=== PATIENT | female | born 2000 | race Caucasian/White ===

== ENCOUNTER 2024-01-02 09:19 | Emergency (ER) | payer OTHER, SELFPAY ==
[2024-01-02 10:01] VITALS: BP 124/65; PULSE 98; RESP 20; TEMP 37.1; O2SAT 100
--- NOTE | 2024-01-02 10:08 | ED.URI ---
HPI - URI/Sore Throat General Chief Complaint: Upper Respiratory Infection Stated Complaint: throat/cough/sob History of Present Illness HPI Narrative: Patient presents with nasal congestion and cough for the past 2 days. Patient has taken some nasal spray for her symptoms 1 time other than that has not taking anything for her symptoms. Patient requests a work note. No fever slight nonproductive cough. Normal appetite normal activity normally healthy individual Related Data Home Medications Medication Instructions Recorded Confirmed No Home Medications 01/02/24 01/02/24 Allergies Allergy/AdvReac Type Severity Reaction Status Date / Time doxycycline Allergy Rash Verified 01/02/24 10:00 Review of Systems Review of Systems: CONSTITUTIONAL: Denies chills, or sweats. Reports fever and generalized body aches EYES: Denies visual changes, redness, or discharge. ENT: Denies otalgia. Reports nasal congestion runny nose and sore throat CARDIOVASCULAR: Denies chest pain, palpitations, or edema. RESPIRATORY: Denies dyspnea. Reports occasional cough GASTROINTESTINAL: Denies abdominal pain, nausea, vomiting, or diarrhea. GENITOURINARY: Denies dysuria or hematuria. SKIN: Denies rash or itching. MUSCULOSKELETAL: Denies back pain, joint pain, or myalgia. Reports generalized body aches NEUROLOGIC: Denies headache, numbness, or weakness. PSYCHIATRIC: Denies anxiety or depression. PMFSH Comments At time of signature, agree with nursing past medical, surgical, social and family history. There is no relevant family history pertinent to the presenting complaint Exam Narrative: The patient is a well-developed, well-nourished in no acute distress. SKIN: Skin is warm and dry without erythema, swelling or exudate. There is good turgor. No tenting. HEAD: Atraumatic. Normocephalic. No temporal or scalp tenderness. EYES: Moist and bright. Sclera and conjunctivae normal. No discharge. PERRLA. Extraocular motions intact. Gross visual acuity intact. EARS: Pinna is normal shape and contour. Clear external auditory canals. TM pearly escoto with good cone of light, no erythema or suppuration. Bilateral cerumen noted no gross hearing deficit. NOSE: pink, moist mucosa with good air movement. Clear rhinorrhea without nasal flaring. Septum midline. Mouth: moist mucous membranes. THROAT; mild erythema noted to posterior oropharynx with moderate postnasal drainage. Without exudate or ulceration.. Uvula midline. Normal movement of soft palate. NECK: Supple and nontender with full range of motion without discomfort. No meningeal signs. LUNGS: Equal and bilateral breath sounds without wheezes, rales or rhonchi. CHEST: The chest wall is without retractions or use of accessory muscles. HEART: Has a regular rate and rhythm without murmur, gallops, click or rub. ABDOMEN: Soft, nontender with positive active bowel sounds. No rebound tenderness. EXTREMITIES: Without cyanosis, clubbing or edema. Equal 2+ distal pulses and 2 second capillary refill noted. NEUROLOGIC: alert, active, . The patient moves all extremities with normal muscle strength. Normal muscle tone is noted. Normal coordination is noted. NO focal neurological findings noted. Course Course Level of Care: Express Care Visit Vital Signs Vital signs: Vital Signs Temperature 37.1 C 01/02/24 10:01 Pulse Rate 98 01/02/24 10:01 Respiratory Rate 20 01/02/24 10:01 Blood Pressure 124/65 01/02/24 10:01 Pulse Oximetry 100 01/02/24 10:01 Oxygen Delivery Room Air 01/02/24 10:01 Temperature 37.1 C 01/02/24 10:01 Pulse Rate 98 01/02/24 10:01 Respiratory Rate 20 01/02/24 10:01 Blood Pressure 124/65 01/02/24 10:01 Pulse Oximetry 100 01/02/24 10:01 Oxygen Delivery Room Air 01/02/24 10:01 Discharge Plan Discharge Clinical Impression: Upper respiratory infection, Viral infection Patient Disposition: Home, Self-Care Condition: Stable Instruct
== END 2024-01-02 10:23 | disposition home or self-care (01) ==
PROVIDERS: Emergency Provider Nurse Practitioner Family
DX: J06.9 Acute upper respiratory infection, unspecified (principal); B34.9 Viral infection, unspecified; Z20.822 Contact with and (suspected) exposure to COVID-19
CPT/HCPCS: 87081; 87426; 87804; 87880; 99213; G0463

== ENCOUNTER 2024-11-04 08:35 | Emergency (ER) | payer OTHER, SELFPAY ==
--- OUTSIDE RECORDS SUMMARY | 2024-11-04 08:38 | XMS_ITS | Clinical Summary ---
Author Organization [facility] Address [address] [place] [address] Care Team Providers Care [employer] Fire Control Man Name Role Phone No, Physician Primary Care Provider [phone] Jadon Louise MD Unavailable [phone] Allergies Active Allergy Reactions Criticality Noted Date Comments Venom-Honey Bee Shortness of breath,Swelling High Doxycycline Vomiting Low 02/07/2018 Wasp Venom Shortness of breath,Swelling High 020 Medications escitalopram (LEXAPRO) 10 mg tablet Take 1 tablet (10 mg total) by mouth every morning 30 tablet 6 0 Active Additional Information Patient not taking.Reported on 03/10/2024 cholecalciferol (VITAMIN D-3) 5,000 unit capsule Take one capsule daily with food. 30 capsule 7 4 Active PNV #[id number] acid-dha 35 mg iron-5 mg iron-1 mg capsuleIndicati ons: Take one tablet/capsule by mouth daily. 30 capsule 11 4 Active ibuprofen (ADVIL,MOTRIN) 600 mg tablet Take 1 tablet (600 mg total) by mouth every 6 (six) hours as needed for pain 40 tablet 4 Active Active Problems Problem Noted Date Diagnosed Date 39 weeks gestation of 09/29/2024 Susceptible to Varicella (no n-immune), currently in third trimester 09/29/2024 Rh negative state in antepartum period 4 Family history of congenital heart disease 03/10 Overview (03/10/2024): FOB had surgery for congenital heart defect: pulmonic .... Marijuana use 03/10/2024 Overview (03/10/2024): Daily, encouraged to decrease or quit. Short stature 03/10/2024 Overview (03/10/2024): 4'10 H/O chlamydia infection 09/24/2020 Vitamin D deficiency 02/26/2020 Closed displaced fracture of shaft of right clav icle 01/03/2019 Overview (01/03/2019): Added automatically from request for surgery [id number] Vaginal delivery Resolved Problems Problem Noted Date Diagnosed Date Resolved Date Cervical shortening in third trimester 06/03/2020 09/24/2020 Overview (06/14/2020): 2.7 cm on ultrasound 06/14/2020, taking Progesterone 200mg daily. Streptococcus agalactiae infection 05/01/2020 09/24/2020 Overview (05/01/2020): Urine GBS bacteriuria 04/30/2020 09/24/2020 Rh negative state in antepartum period 03/25/2020 09/24/2020 BV (bacterial vaginosis) 02/02/2020 Chlamydia infection affectin g in first trimester 01/31/2020 09/24/2020 Subchorionic hemorrhage of p lacenta in first trimester 01/14/2020 09/24/2020 care following vaginal delivery 09/24/2020 39 weeks gestation of 09/24/2020 Encounters Date Type Department Care Team Description 09/29/2024 10:38 AM CUSTOMER CARE AGENT Anesthesia Event [facility] [address] [place] [address] Kalli Bruce Jr., MD Reinersman, Chelsea Couch, ALYSSA 09/29/2024 6:33 AM CUSTOMER CARE AGENT - 09/30/2024 2:45 PM CUSTOMER CARE AGENT Hospital Encounter [facility] [address] [place] [address] Jadon Louise MD Vaginal delivery [O80] (Primary Dx); 39 weeks gestation of Discharge Disposition: Discharge to home or self care 09/29/2024 Documentation [facility] Warm Hand Off Program [address] [place], [place] [phone] Ethel Sotelo 09/19/2024 1:45 PM CUSTOMER CARE AGENT Office Visit [place] [address] [phone] Jadon Louise MD Encounter for supervision of other normal in third trimester (Primary Dx); 37 weeks gestation of 09/12/2024 1:45 PM CUSTOMER CARE AGENT Office Visit [address] [phone] Jadon Louise MD Encounter for supervision of other normal in third trimester (Primary Dx); 37 weeks gestation of 09/05/2024 2:45 PM CUSTOMER CARE AGENT - 09/05/2024 11:59 PM CUSTOMER CARE AGENT [place] [address] Encounter for supervision of other normal in third trimester; 36 weeks gestation of Discharge Disposition: Discharge to home or self care 09/05/2024 1:45 PM CUSTOMER CARE AGENT Office Visit [address] [phone] Jaja Ly NP Encounter for supervision of other normal in third trimester (Primary Dx); 36 weeks gestation of 08/21/2024 1:30 PM CUSTOMER CARE AGENT Office Visit [address] [phone] Jadon Louise MD Encounter for supervision of other normal in third trimester (Primary Dx); 33 weeks gestation of from Last 3 Months Immunizations Name Administration Dates Next Due MMR 08/15/2020(Deferred: No longer n eeded) Tdap 08/21/2024,06/10/2020 Surgical History Surgery Date Site/Laterality Comments TONSILLECTOMY WISDOM TOOTH EXTRACTION Medical History Medical History Date Comments Bronchitis Migraines Family History Medical History Relation Name Comments Hypertension Mother No Known Problems Other Relation Name Status Comments Mother Other Social History Tobacco Use Types Packs/Day Years Used Date Smoking Tobacco: Never Passive Smoke Exposure: Never Smokeless Tobacco: Never Tobacco Cessation:Counseling Given: No Alcohol Use Standard Drinks/Week Comments Not Currently 0 (1 standard drink = 0.6 oz pur e alcohol) [facility] Utilities Answer Date Recorded In the past 12 months has th e electric, gas, oil, or water company threatened to shut off services in your home? No 09/29/2024 Humiliation, Afraid, Rape, and Kick questionnair e Answer Date Recorded Within the last year, have y ou been afraid of your partner or ex-partner? No 09/29/2024 Within the last year, have y ou been humiliated or emotionally abused in other ways by your partner or ex-partner? No Within the last year, have y ou been kicked, hit, slapped, or otherwise physically hurt by your partner or ex-partner? No 09/29/2024 Within the last year, have y ou been raped or forced to have any kind of sexual activity by your partner or ex-partner? No 09/29/2024 Social Connection and Isolat ion Panel [NHANES] Answer Date Recorded In a typical week, how many times do you talk on the phone with family, friends, or neighbors? More than three times a week 09/29/2024 How often do you get togethe r with friends or relatives? More than three times a week 09/29/2024 How often do you attend chur or jain services? Never 09/29/2024 Do you belong to any clubs o r organizations such as alevism groups, unions, fraternal or athletic groups, or school groups? No 09/29/2024 How often do you attend meet ings of the clubs or organizations you belong to? Never 09/29/2024 Are you , , di vorced, , never , or living with a partner? Living with partner 09/29/2024 AUDIT-C Answer Date Recorded Q1: How often do you have a drink containing alc ohol? Monthly or less 09/29/2024 Q2: How many drinks containi ng alcohol do you have on a typical day when you are drinking? 1 or 2 09/29/2024 Q3: How often do you have si x or more drinks on one occasion? Never 09/29/2024 Overall Financial Resource Strain (CARDIA) Answe r Date Recorded How hard is it for you to pa y for the very basics like food, housing, medical care, and heating? Not hard at all 09/29/2024 PHQ-2 Answer Date Recorded PHQ-2 Total Score 0 09/29/2024 [facility]ational Stress Questionnaire Answer Date Recorded Do you feel stress - tense, restless, nervous, or anxious, or unable to sleep at night because your mind is troubled all the time - these days? Not at all 09/29/2024 Exercise Vital Sign Answer Date Recorde d On average, how many days pe r week do you engage in moderate to strenuous exercise (like a brisk walk)? 5 days 09/29/2024 On average, how many minutes do you engage in exercise at this level? 40 min 09/29/2024 Hunger Vital Sign Answer Date Recorded Within the past 12 months, y ou worried that your food would run out before you got the money to buy more. Never true 09/29/20 24 Within the past 12 months, t he food you bought just didn't last and you didn't have money to get more. Never true 09/29/2024 PRAPARE - Transportation Answer Date Re corded In the past 12 months, has l ack of transportation kept you from medical appointments or from getting medications? No 09/11 In the past 12 months, has l ack of transportation kept you from meetings, work, or from getting things needed for daily living? No 09/29/2024 Novinger Depression Scale Answer Date Recorded Novinger Depression Scale Total 2 09/29/2024 The thought of harming myself has occurred to me . Never 09/29/2024 Housing Stability Vital Sign Answer Uli e Recorded In the last 12 months, was t here a time when you were not able to pay the mortgage or rent on time? No 09/29/2024 In the past 12 months, how m any times have you moved where you were living? 0 09/29/2024 At any time in the past [address] [facility], were you homeless or living in a custodial (including now)? No 09/29/2024 Personal Safety Answer Date Recorded Have you ever been in or are you currently in a harmful physical or emotional relationship or is someone making you feel afraid or unsafe? Denies 09/29/2024 Comments No Sex and Gender Information Value Date Recorded Sex Assigned at Not on file Legal Sex Female 4:39 PM CUSTOMER CARE AGENT Gender Identity Not on file Sexual Orientation Not on file Obstetrics History Para Term AB IAB SAB Ectopic Multiple Livin g Live Births 4 2 2 2 2 0 2 2 Date Outcome GA Total Labor Labor/2nd/3rd Weight Sex Type Anes PTL Veena A1 A5 Name Clin SAB 2019 Term 39w 1d 7h 36m 5h 40m/1h 49m/0h 07m 3.107 kg (6 lb 13.6 oz) M Vag-Sp ont Epidur al,Loc al N Livin g 8 9 MARGARET JOSEPH Josep h Mark, MD Complications:None Delivery [facility] ([facility]) 3 SAB 4w0 d 2023 Term 39w 2d 1h 37m 1h 11m/0h 21m/0h 05m 2.517 kg (5 lb 8.8 oz) F Vagina l Epidur al N Livin g 9 9 Derik De La Garza MD Complications:Precipitous La bor (<3 hours) Delivery Location:[facility]) Comments SAB at age 16. Summary Episode Dates Number of Fetuses Estimated Date of Delivery 03/10/2024 - Present (11/04/2024) 1 10/04/2024 (set by Catie Louise MD on 09/12/2024 based on Ultrasound on 02/23/2024) Dating Summary Based On CATHY GA Diff Last Menstrual Period (LMP Unknown) Ultrasound on 02/23/2024 10/04/2024 Working GA:8w0d Ultrasound on 05/19/2024 10/07/2024 -3d GA:19w6d Alternate CATHY Entry 10/03/2024 +1d Vitals Pregravid Weight Height TWG (As of 11/04/2024) Pregrav id BMI 149.9 cm (4' 11 ) Date GA Fund Present FHR Mvmt BP Weight Edema Alb Glu Ket Dil/ Eff/Sta 024 10w2d 118/7 0 58.5 kg (129 lb) 0/0/ 024 36w6d 122/7 6 76.2 kg (168 lb) 30/-2 024 37w6d 120/7 6 78 kg (172 lb) 1.5/40/-2 024 39w2d Inpatient data not displayed here. See encounter summary. Notes Progress Notes - Hospital En counter - 09/30/2024 - GA:39w2d 09/30/2024 - 39w2d - Jadon Louise MD Day #1 No complaints. BP 111/75 Pulse 61 Temp 37.1 ??C (98.7 ??F) (Temporal) Resp 14 Ht 149.9 cm (4' 11 ) Wt 172 lb (78 kg) LMP (LMP Unknown) SpO2 99% No BMI 34.74 kg/m?? Fundus firm, non-tender Perineum: minimal lochia Laceration intact Extremities: non-tender Recent Labs Lab Units 09/29/24 0710 WBC K/cumm 9.2 HEMOGLOBIN g/dL 11.1* HEMATOCRIT % 33.3* PLATELETS K/cumm 187 Lab Results Component Value Date ABORH A Negative 09/29/2024 CBC pending. Assessment: Doing well. Plan: Continue care. Home per orders. F/u six weeks. Pelvic rest. Continue PNV daily. OMER CARE AGENT Progress Notes - Office Visi t - 09/19/2024 - GA:37w6d 09/19/2024 - 37w6d - Jadon Louise MD No c/os. S=D. Labor instructions. Induction next week. OMER CARE AGENT Progress Notes - Office Visi t - 09/12/2024 - GA:36w6d 09/12/2024 - 36w6d - Jadon Louise MD No c/os except discomfort pains, shooting vaginal pains. S=D. Labor instructions. OMER CARE AGENT Progress Notes - Office Visi t - 09/05/2024 - GA:35w6d 09/05/2024 - 35w6d - Jaja Ly NP Doing well, increased pressure in low pelvis/perineum consistent with physiological changes in late 3rd trimester. S=D. GBS swab done. Labor/PreE instructions. OMER CARE AGENT Progress Notes - Office Visi t - 08/21/2024 - GA:33w5d 08/21/2024 - 33w5d - Jadon Louise MD No c/os. S=D. Tdap today. Recommended RSV vaccine. PTL instructions. OMER CARE AGENT Progress Notes - Routine Pre karolina - 08/01/2024 - GA:30w6d 08/01/2024 - 30w6d - Jaja Ly NP Doing well, no c/os. S=D, carrying side to side. Encouraged to take vitamin D and PNV consistently as directed. PTL instructions. Progress Notes - Routine Pre karolina - 07/11/2024 - GA:27w6d 07/11/2024 - 27w6d - Lali Doran RN Rhogam given. 07/11/2024 - 27w6d - Jadon Louise MD No c/os. S=D. PTL instructions. Labs today. Rhogam after labs. Progress Notes - Routine Pre karolina - 06/16/2024 - GA:24w2d 06/16/2024 - 24w2d - Jadon Louise MD No c/os. echo yesterday. S=D, carrying side to side. PTL instructions. Progress Notes - Routine Pre karolina - 05/19/2024 - GA:20w2d 05/19/2024 - 20 - Jadon Louise MD No c/os. S=D. Anatomy sono today. FOG had pyloric stenosis repair, heart surgery for pulmonary valve stenosis, PDA and ASD. He also has Axenfeld Riger's syndrme. (Unclear if 6p25 deletion syndrome). NOB labs reviewed. PTL instructions. Recommend echo. Discussed with FOB to see learning operations specialist. Progress Notes - Routine Pre karolina - 04/07/2024 - GA:14w2d 04/07/2024 - 14w2d - Jaja Ly NP Doing well, nausea has improved. Taking vitamin D as directed - encouraged to start PNV. Anatomy scan scheduled. Progress Notes - Initial Pre - 03/10/2024 - GA:10w2d 03/10/2024 - 10w2d - Jadon Louise MD Initial OB Visit Subjective: Hedy Gregorio is a 23 y.o., at 10w2d, based on 1st trimester U/S, who presents for initial visit. Her obstetrical history is significant for x one . Past history fully reviewed. She reports nausea. Additional concerns today: new FOB x one year dating who had congenital heart defect repaired. Menstrual History: No LMP recorded (lmp unknown). Patient is . Sexual History: OB History 4 Para 1 Term 1 AB 2 Living 1 SAB 2 IAB Ectopic Multiple 0 Live Births 1 # Outcome Date GA Labor/2nd Weight Sex Type Anes PTL Lv A1 A5 1 SAB 2 Term 08/13/20 39w1d 5h 40m / 1h 49m 3.107 kg (6 lb 13.6 oz) M Vag-Spont Epidural, Local N Living 8 9 Name: KIERA GREGORIO Location: This Facility Delivering Clinician: Jadon Louise MD 3 SAB 02/2023 4w0d 4 Current Obstetric Comments SAB at age 16. Past Medical History: Diagnosis Date Bronchitis Migraines Past Surgical History: Procedure Laterality Date TONSILLECTOMY WISDOM TOOTH EXTRACTION Allergies Allergen Reactions Bees [Venom-Honey Bee] Shortness of breath and Swelling Wasp Venom Shortness of breath and Swelling Doxycycline Vomiting Prior to Admission medications Medication Sig Start Date End Date Taking? Authorizing Provider progesterone (PROMETRIUM) 200 mg capsule Insert 1 capsule (200 mg total) into the vagina daily 02/03/24 02/02/25 Yes Jadon Louise MD escitalopram (LEXAPRO) 10 mg tablet Take 1 tablet (10 mg total) by mouth every morning Patient not taking: Reported on 03/10/2024 09/16/20 Jadon Louise MD Family History Problem Relation Age of Onset Hypertension Mother No Known Problems Other Social History Tobacco Use Smoking status: Former Types: Cigarettes Smokeless tobacco: Never Substance and Sexual Activity Drug use: Yes Types: Marijuana Comment: 2 joints per day Sexual activity: Yes Partners: Male control/protection: None Alcohol Use: Not on file ROS Objective: BP 118/70 (BP Location: Right arm, Patient Position: Sitting) Ht 149.9 cm (4' 11 ) Wt 129 lb (58.5 kg) LMP (LMP Unknown) BMI 26.05 kg/m?? Physical OB Exam: Last filed by Jadon Louise MD on 03/10/2024 2:27 PM General Physical Exam HEENT: normal Heart: normal Skin: normal Thyroid: normal Lungs: normal Extremities: normal Lymph Nodes: normal Breasts: normal Neurological: normal Abdomen: normal Pelvic Exam Vulva: normal Vagina: discharge White frothy Cervix: normal Uterus: 10 weeks Adnexa: normal Spines: average Subpubic Arch: normal Pelvic Type: gynecoid Wet prep: 30% clue cells. See flow sheet for gestation -specific examination and vitals. See Episode Report for physical of record. Assessment: Patient is a 23 y.o., at 10w2d, size = dates. Diagnoses and all orders for this visit: Encounter for supervision of normal first in first trimester (Primary) - Drugs of Abuse Screen, Urine without Confirmation; Future - Urinalysis reflex to microscopic and culture Urine, clean voided; Future - Varicella Zoster IgG antibody Blood; Future - Hepatitis C antibody Blood; Future - Hepatitis B Surface Antigen Blood; Future - Type and screen; Future - Vitamin D 25 hydroxy; Future - RPR Blood; Future - HIV 1/2 Antibody plus p24 Antigen Blood; Future - CBC with auto differential; Future - Rubella IgG antibody Blood; Future - Pap and High Risk HPV and Genotyping (Cytology Component); Future - High Risk HPV DNA Detection with Genotyping (Molecular component); Future - N. gonorrhoeae/C. trachomatis Amplification Thin prep-Endocervical; Future 10 weeks gestation of Family history of congenital heart disease Comments: FOB had surgery. Plan echo. Bacterial vaginosis Comments: Take flagyl at 12 weeks. Marijuana use Short stature Problem list reviewed and updated: Problems (from 03/10/24 to present) No problems associated with this episode. Plan: vitamin with DHA ordered Labs ordered Discussed genetic testing - patient plans NIPT Genetic counseling declined Carrier screening offered. I reviewed exercise, diet, medications, precautions. Also, see checklist. Follow up in 4 weeks. Jadon Louise MD 03/10/2024 Last Filed Vital Signs Vital Sign Reading Time Taken Comments Blood Pressure 111/75 09/30/2024 7:15 AM CUSTOMER CARE AGENT Pulse 61 09/30/2024 7:15 AM CUSTOMER CARE AGENT Temperature 37.1 ??C (98.7 ??F) 09/30/2024 7:15 AM CS T Respiratory Rate 14 09/30/2024 7:15 AM CUSTOMER CARE AGENT Oxygen Saturation 99% 09/29/2024 1:08 PM CUSTOMER CARE AGENT Inhaled Oxygen Concentration - - Weight 78 kg (172 lb) 09/29/2024 6:58 AM CUSTOMER CARE AGENT Height 149.9 cm (4' 11 ) 09/29/2024 6:58 AM CUSTOMER CARE AGENT Body Mass Index 34.74 09/29/2024 6:58 AM CUSTOMER CARE AGENT Plan of Treatment Health Maintenance Due Date Last Done Comments Regular Well Visit/Exam 18-64 2016 Influenza Vaccine (#1) 2024 10/30/2008 Cervical Cancer Screening 03/10/20252023, 03/10/2024, 01/29/2020 Depression Screening 09/29/2025 09/29/2024, 09/29/2024, 02/26/2020, Additional history exists DTaP/Tdap/Td Vaccine (9 - Td or Tdap) 08/21/2034 08/21/2024, 06/10/2020, 05/09/2008, Additional history exists Varicella Vaccines Completed 05/09/2008, 03/18/1999 HPV Vaccines Completed 08/01/2009, 12/10, 10/30/2008 Hepatitis C Screening Completed 03/10/2024, 020 Pneumococcal vaccine <65 Aged Out No longer eligible based on patient's age to complete this topic Medical Devices Implanted Type Area Grab Driver Device Identifier Shelf Expiration Date Model / Serial / Lot [employer] -1 [id number] Hole Lock Midshaft Narrow Profile Clavicle Right Plate - [id number] Implanted:Qty: 1 on 01/03/2019 by Maxi Sweet MD at [facility] [employer] [id number] / / N/A -301 -3.0 Non Locking Hexalobe Screw Implanted:Qty: 1 on 01/03/2019 by Maxi Sweet MD at [facility] [employer] [id number] / / N/A [employer] 30-030 3mm 12mm Nonlock Hexalobe Head Screw Bone Nonsterile - [id number] Implanted:Qty: 1 on 01/03/2019 by Maxi Sweet MD at [facility] [employer] / / N/A [employer] 30-027 3mm 10mm Lock Hexalobe Elbow Screw Bone Nonsterile - [id number] Implanted:Qty: 1 on 01/03/2019 by Maxi Sweet MD at [facility] [employer] / / N/A [employer] 3mm 12mm Lock Hexalobe Head Screw Bone Nonsterile - [id number] Implanted:Qty: 3 on 01/03/2019 by Maxi Sweet MD at [facility] [employer] / / N/A Procedures Procedure Name Priority Date/Time Associated Diagnosis Comments DIFFERENTIAL AUTO STAT 09/30/2024 10: 06 AM CUSTOMER CARE AGENT CBC WITH AUTO DIFFERENTIAL STAT 09/30/2024 10:06 AM CUSTOMER CARE AGENT ERYTHROCYTE SCREEN Timed 09/30/2024 7:13 AM CUSTOMER CARE AGENT RH IMMUNE GLOBULIN EVAL Timed 09/30/2024 7:13 AM CUSTOMER CARE AGENT BLOOD GAS, CORD ARTERIAL STAT 09/29/2024 12:48 PM CUSTOMER CARE AGENT BLOOD GAS, CORD VENOUS STAT 12:48 PM CUSTOMER CARE AGENT ANESTHESIA EPIDURAL BLOCK Routine 09/29/2024 11:24 AM CUSTOMER CARE AGENT CANNABINOIDS, URINE, CONFIRMATION STAT 09/29/2024 7:10 AM CUSTOMER CARE AGENT DIFFERENTIAL AUTO STAT 09/29/2024 7:1 0 AM CUSTOMER CARE AGENT ANTIBODY SCREEN STAT 09/29/2024 7:10 AM CUSTOMER CARE AGENT ABO/RH STAT 09/29/2024 7:10 AM CUSTOMER CARE AGENT DRUG SCREEN, URINE L AND D WITH REFLEX CONFIRMATION STAT 09/29/2024 7:10 AM CUSTOMER CARE AGENT CBC WITH AUTO DIFFERENTIAL STAT 09/29/2024 7:10 AM CUSTOMER CARE AGENT TYPE AND SCREEN STAT 09/29/2024 7:10 AM CUSTOMER CARE AGENT RPR Routine 09/29/2024 7:10 AM CUSTOMER CARE AGENT POCT URINALYSIS DIPSTICK Routine 09/19/2024 2:05 PM CUSTOMER CARE AGENT Encounter for supervision of other normal in third trimester 37 weeks gestation of POCT URINALYSIS DIPSTICK Routine 09/12/2024 2:16 PM CUSTOMER CARE AGENT Encounter for supervision of other normal in third trimester 37 weeks gestation of GROUP B STREPTOCOCCUS CULTURE Routine 09/05/2024 9:04 PM CUSTOMER CARE AGENT Encounter for supervision of other normal in third trimester 36 weeks gestation of POCT OB URINE SHORT DIP (GLUCOSE, PROTEIN, KETONES) Routine 09/05/2024 2:02 PM CUSTOMER CARE AGENT Encounter for supervision of other normal in third trimester 36 weeks gestation of POCT URINALYSIS DIPSTICK Routine 08/21/2024 1:46 PM CUSTOMER CARE AGENT Encounter for supervision of other normal in third trimester 33 weeks gestation of HEPATITIS C ANTIBODY Routine 03/10/2024 2:15 PM CDT Encounter for supervision of normal first in first trimester HIGH RISK HPV DNA DETECTION WITH GENOTYPING Routine 03/10/2024 1:57 PM CDT Encounter for supervision of normal first in first trimester from Last 3 Months or Most Recently Relevant to Health Maintenance Results * (ABNORMAL) Differential, auto (09/30/2024 10:06 AM CUSTOMER CARE AGENT) Neutrophil abs 11.0(H) 1.5 - 6.5 K/cumm Imm gran abs 0.1 0.0 - 0.1 K/cumm [facility] ([facility]) Lymphocyte abs 1.7 0.8 - 3.3 K/cumm [facility] ([facility]) Monocyte abs 0.7 0.2 - 0.8 K/cumm [facility] ([facility]) Eosinophil abs 0.0 0.0 - 0.5 K/cumm [facility] ([facility]) Basophil abs 0.0 0.0 - 0.1 K/cumm [facility] ([facility]) Neutrophil pct 80.6 % [facility] ([facility]) Comment: Interpretive Data Percent cell count reference ranges are not reported, since discordance with absolute values may lead to misinterpretation of CBC data. Current Interpretive Data was last revised on 2018. Imm gran pct 1.0 % [facility] ([facility]) Comment: Interpretive Data Percent cell count reference ranges are not reported, since discordance with absolute values may lead to misinterpretation of CBC data. Current Interpretive Data was last revised on 2018. Lymphocyte pct 12.8 % [facility] ([facility]) Comment: Interpretive Data Percent cell count reference ranges are not reported, since discordance with absolute values may lead to misinterpretation of CBC data. Current Interpretive Data was last revised on 2018. Monocyte pct 5.1 % [facility] ([facility]) Comment: Interpretive Data Percent cell count reference ranges are not reported, since discordance with absolute values may lead to misinterpretation of CBC data. Current Interpretive Data was last revised on 2018. Eosinophil pct 0.3 % [facility] ([facility]) Comment: Interpretive Data Percent cell count reference ranges are not reported, since discordance with absolute values may lead to misinterpretation of CBC data. Current Interpretive Data was last revised on 2018. Basophil pct 0.2 % [facility] ([facility]) Comment: Interpretive Data Percent cell count reference ranges are not reported, since discordance with absolute values may lead to misinterpretation of CBC data. Current Interpretive Data was last revised on 2018. Blood 09/30/2024 10:0 6 AM CUSTOMER CARE AGENT 09/30/2024 10:09 AM CUSTOMER CARE AGENT us Jadon Louise MD LAB BLOOD ORDERABLES Final Result [facility] ([place] Department [place] [address] * (ABNORMAL) CBC with auto differential (09/30/2024 10:06 AM CUSTOMER CARE AGENT) WBC 13.6(H) 3.8 - 9.9 K/cumm Hgb 10.3(L) 11.9 - 15.5 g/dL [facility] ([facility]) Hct 31.6(L) 35.6 - 45.5 % [facility] ([place]) Plt 181 150 - 400 K/cumm [facility] ([place]) MPV 9.5 9.1 - 12.3 fL [facility] ([place]) RBC 3.78(L) 3.90 - 5.20 M/cumm [facility] ([place]) MCV 83.6 81.3 - 96.4 fL [facility] ([place]) MCH 27.2 27.1 - 33.3 pg [facility] ([place]) MCHC 32.6 32.3 - 35.7 g/dL [facility] ([place]) RDW CV 14.0 11.1 - 14.9 % [facility] ([place]) RDW SD 42.6 35.7 - 48.1 fL [facility] ([place]) NRBC abs 0.00 0.00 - 0.01 K/cumm [facility] ([place]) Blood 09/30/2024 10:0 6 AM CUSTOMER CARE AGENT 09/30/2024 10:09 AM CUSTOMER CARE AGENT us Jadon Louise MD LAB BLOOD ORDERABLES Final Result [facility] ([place]) 1 [facility] Department [place] [address] * Rh Immune Globulin Eval (09/30/2024 7:13 AM CUSTOMER CARE AGENT) RhIg Eligible Yes RhIg Administration 1 vial of Rh Immune Globulin (300 mcg dose) [facility] ([place]) Blood 09/30/2024 7:13 AM CUSTOMER CARE AGENT 09/30/2024 7:19 AM CUSTOMER CARE AGENT Narrative [facility] ([place] - 09/30/2024 8:32 AM CUSTOMER CARE AGENT Number of weeks ?->20 weeks or greater antibody screen result:->Negative Rhogam given?->Not given Number of vials requested:->1 Jadon Louise MD LAB BLOOD BANK TEST ORDERA BLES Final Result Performing Organization Address [facility]/ZIP Co de Phone Number LES RUDD ([place]) 1 [facility] Department of [place] [address] * erythrocyte screen (09/30/2024 7:13 AM CUSTOMER CARE AGENT) Screen Interpretation Negative Comment:Testing performed by : [facility], 1 [facility] [address] Blood 09/30/2024 7:13 AM CUSTOMER CARE AGENT 09/30/2024 9:28 AM CUSTOMER CARE AGENT Mckenna Silver MD LAB BLOOD ORDERABLES Chacha l Result Performing Organization Address [facility] Co de Phone Number LES RUDD ([place]) [address] [facility] [place] [address] * Blood Gas, Cord Venous (09/29/2024 12:48 PM CUSTOMER CARE AGENT) pH Cord Panfilo 7.35 pCO2 Cord Panfilo 40 mmHg [facility] ([place]) pO2 Cord Panfilo 34 mmHg [facility] ([place]) Base Excess Cord Panfilo -3 mmol/L [facility] ([place]) HCO3 Cord Panfilo (Calc) 22 mmol/L [facility] ([place]) O2 Sat Cord Panfilo (Vivienne) 74 % [facility] ([place]) Comment: Interpretive Data No Reference Ranges Established Current Interpretive Data was last revised on 2018 Cord blood 09/29/2024 12:4 8 PM CUSTOMER CARE AGENT 09/29/2024 12:53 PM CUSTOMER CARE AGENT Jadon Louise MD LAB BLOOD ORDERABLES Final Result Performing Organization Address [facility] Co de Phone Number [facility] RUDD ([place]) 1 [facility] Department of [address] [address] * Blood Gas, Cord Arterial (09/29/2024 12:48 PM CUSTOMER CARE AGENT) pH Cord Art 7.27 pCO2 Cord Art 48 mmHg [facility] ([place]) pO2 Cord Art 40 mmHg [facility] ([place]) Base Excess Cord Art -6 mmol/L [facility] ([place]) HCO3 Cord Art (Calc) 21 mmol/L [facility] ([place]) O2 Sat Cord Art (Vivienne) 76 % [facility] ([place]) Comment: Interpretive Data No Reference Ranges Established Current Interpretive Data was last revised on 2018 Cord blood 09/29/2024 12:4 8 PM CUSTOMER CARE AGENT 09/29/2024 12:53 PM CUSTOMER CARE AGENT Jadon Louise MD LAB BLOOD ORDERABLES Final Result LES [facility] ([place]) 1 [facility] Department [place] [address] * Epidural Block (09/29/2024 11:24 AM CUSTOMER CARE AGENT) Narrative Kalli Bruce Jr., MD - 09/29/2024 11:24 AM CUSTOMER CARE AGENT Kalli Bruce Jr., MD ? 09/29/2024 11:25 AM Epidural Block Patient location: L&D Reason for block: labor analgesia Staff: Placed by: Anesthesiologist: Kalli Bruce Jr., MD Procedure prep: Preprocedure checklist: patient identified, procedure contraindications assessed, procedure consent obtained, surgical consent, IV checked, risks, benefits and alternatives discussed, monitors and equipment checked and timeout performed Patient Position: sitting Procedure performed while patient: awake Monitoring: ECG, oximetry and blood pressure Prep solution: chlorhexadine/alcohol PPE: provider hat/mask, sterile gloves and sterile drape Skin infiltrated with lidocaine 1%: yes Epidural: Approach: midline Imaging guidance used: no Location: L3-4 Number of attempts:1 Epidural needle: Injection technique: BONIFACIO air and BONIFACIO saline Needle type: Tuohy Needle gauge: 18 G Needle length: 9 cm Loss of resistance: 5 cm Catheter: Catheter type: multi-orifice. Catheter at skin depth: 10 cm Negative aspiration of blood: no Negative aspiration of CSF: no Test dose: negative Assessment: Sensory level - left: full eval pending Sensory level - right: full eval pending Events: patient tolerated procedure well with no complications Kalli Bruce Jr., MD ANESTHESIA ORDER MUNDO Final Result * (ABNORMAL) Drug Screen, Urine L and D with Reflex Confirmation (09/29/2024 7:10 AM CUSTOMER CARE AGENT) Amphetamine, ur Not Detected CutOff 500ng/mL Comment: Interpretive Data - Amphetamines: ??Samples containing greater than 500 ng/mL d-methamphetamine ??or other cross-reacting amphetamine compounds are reported as positive. ??Amphetamine immunoassays are subject to significant false positive rates due to cross-reactivity of non-amphetamine drugs. Confirmatory testing required for definitive results. Current Interpretive Data was last reviewed 2023. Barbiturates, ur Not Detected CutOff 200ng/mL [facility] ([place]) Comment: Interpretive Data - Barbiturates: ??Samples containing greater than 200 ng/mL secobarbital or other cross-reacting barbiturate compounds are reported as positive. ??False positive and false negative results are possible. Confirmatory testing required for definitive results. Current Interpretive Data was last reviewed 2023. Benzodiazepines, ur Not Detected CutOff 100ng/mL [facility] ([place]) Comment: Interpretive Data - Benzodiazepines: ??Samples containing greater than 100 ng/mL nordiazepam or other cross-reacting compounds are reported as positive. False positive and false negative results are possible. Confirmatory testing required for definitive results. Current Interpretive Data was last reviewed 2023. Cannabinoids, ur Screen Positive, presumptive (A) CutOff 50 ng/mL [facility] ([place]) Comment: Interpretive Data - Cannabinoids: ??Samples containing greater than 50 ng/mL delta-9 THC -COOH or other cross-reacting compounds are reported as positive. ??False positive and false negative results are possible. ??Confirmatory testing required for definitive results. Current Interpretive Data was last reviewed 2023. Cocaine, ur Not Detected CutOff 150ng/mL [facility] ([place]) Comment: Interpretive Data - Cocaine: ??Samples containing greater than 150 ng/mL benzoylecgonine or other cross-reacting compounds are reported as positive. False positive and false negative results are possible. Confirmatory testing required for definitive results. Current Interpretive Data was last reviewed 2023. Fentanyl, Ur Not Detected CutOff 5 ng/mL [facility] ([place]) Comment: Interpretive Data - Fentanyl: ??Samples containing greater than 5 ng/mL norfentanyl, fentanyl, or other cross-reacting fentanyl compounds are reported as positive. False positive and false negative results are possible. Confirmatory testing required for definitive results. Current Interpretive Data was last reviewed 2023. Methadone, ur Not Detected CutOff 300ng/mL [facility] ([place]) Comment: Interpretive Data - Methadone: ??Samples containing greater than 300 ng/mL d,l-methadone or other cross-reacting compounds are reported as positive. ??False positive and false negative results are possible. Confirmatory testing required for definitive results. Current Interpretive Data was last reviewed 2023. Opiates, ur Not Detected CutOff 300ng/mL [facility] ([place]) Comment: Interpretive Data - Opiates: ??Samples containing greater than 300 ng/mL morphine or other cross-reacting compounds are reported as positive. ??False positive and false negative results are possible. Confirmatory testing required for definitive results. Current Interpretive Data was last reviewed 2023. Oxycodone, ur Not Detected CutOff 100ng/mL [facility] ([place]) Comment: Interpretive Data - Oxycodone: ??Samples containing greater than 100 ng/mL oxycodone or other cross-reacting compounds are reported as ??positive. ??False positive and false negative results are possible. Confirmatory testing required for definitive results. Current Interpretive Data was last reviewed 2023. Phencyclidine, ur Not Detected CutOff 25 ng/mL [facility] ([place]) Comment: Interpretive Data - Phencyclidine: ??Samples containing greater than 25 ng/mL phencyclidine or other cross-reacting compounds are reported as positive. ??False positive and false negative results are possible. Confirmatory testing required for definitive results. Current Interpretive Data was last reviewed 2023. Urine Creatinine 101 mg/dL [facility] ([place]AM[place]) Comment: Interpretive Data Urine Creatinine: < 10 mg/dL is extremely dilute = or > 10 but < 20 mg/dL is dilute = or > 20 mg/dL is normal Current Interpretive Data was last revised on 2017. Urine (Urine, Clean Catch) 09/29/2024 7:10 AM CUSTOMER CARE AGENT 09/29/2024 7:23 AM CUSTOMER CARE AGENT Narrative [facility] ([place]) - 09/29/2024 7:42 AM CUSTOMER CARE AGENT Drug of Abuse screening is performed by immunoassay for medical purposes only. ??This is not to be used for Pain Management purposes. ??If Detected, confirmation testing will be performed for Amphetamines, Barbiturates, Benzodiazepines, Cannabinoids, Cocaine, Fentanyl, Methadone, Opiates, Oxycodone or Phencyclidine. us Jadon Louise MD LAB URINE ORDERABLES Final Result [facility] ([place]) 1 [facility] Department [place] [address] * (ABNORMAL) Differential, auto (09/29/2024 7:10 AM CUSTOMER CARE AGENT) Neutrophil abs 7.1(H) 1.5 - 6.5 K/cumm Imm gran abs 0.1 0.0 - 0.1 K/cumm [facility] ([place]) Lymphocyte abs 1.3 0.8 - 3.3 K/cumm [facility] ([place]) Monocyte abs 0.6 0.2 - 0.8 K/cumm [facility] ([place]) Eosinophil abs 0.1 0.0 - 0.5 K/cumm [facility] ([place]) Basophil abs 0.0 0.0 - 0.1 K/cumm [facility] ([place]) Neutrophil pct 76.8 % [facility] R [facility] ([place]) Comment: Interpretive Data Percent cell count reference ranges are not reported, since discordance with absolute values may lead to misinterpretation of CBC data. Current Interpretive Data was last revised on 2018. Imm gran pct 1.4 % [facility] ([place]) Comment: Interpretive Data Percent cell count reference ranges are not reported, since discordance with absolute values may lead to misinterpretation of CBC data. Current Interpretive Data was last revised on 2018. Lymphocyte pct 13.9 % [facility] R [facility] ([place]) Comment: Interpretive Data Percent cell count reference ranges are not reported, since discordance with absolute values may lead to misinterpretation of CBC data. Current Interpretive Data was last revised on 2018. Monocyte pct 6.3 % LES RUDD (DAMARIS) Comment: Interpretive Data Percent cell count reference ranges are not reported, since discordance with absolute values may lead to misinterpretation of CBC data. Current Interpretive Data was last revised on 2018. Eosinophil pct 1.2 % LASHAYNE Colette RUDD (DAMARIS) Comment: Interpretive Data Percent cell count reference ranges are not reported, since discordance with absolute values may lead to misinterpretation of CBC data. Current Interpretive Data was last revised on 2018. Basophil pct 0.4 % LES RUDD ([place]AM[place]) Comment: Interpretive Data Percent cell count reference ranges are not reported, since discordance with absolute values may lead to misinterpretation of CBC data. Current Interpretive Data was last revised on 2018. Blood 09/29/2024 7:10 AM CUSTOMER CARE AGENT 09/29/2024 7:23 AM CUSTOMER CARE AGENT us Jadon Louise MD LAB BLOOD ORDERABLES Final Result L[facility] RUDD ([place]) 1 [facility] Department [place] [address] * Cannabinoids, urine, confirmation (09/29/2024 7:10 AM CUSTOMER CARE AGENT) Delta-8 Carboxy-THC Not Detected Cutoff: 5 ng/mL [place] ref Lab Delta-9 Carboxy-THC 238 Cutoff: 5 ng/mL LES RUDD (DAMARIS) Cannabinoids ur interpretation Positive. LES RUDD (DAMARIS) Comment: ADDITIONAL INFORMATION This report is intended for use in clinical monitoring and management of patients. ??It is not intended for use in employment-related testing. This test was developed and its performance characteristics determined by [facility] in a manner consistent with CLIA requirements. This test has not been cleared or approved by the U.S. Food and Drug Administration. Test Performed by: [facility] - [facility] [address] [place] [address] Blanket Cutter Hand: Shirley Elizalde Ph.D.; CLIA# [id number] Urine 09/29/2024 7:10 AM CUSTOMER CARE AGENT 09/29/2024 7:42 AM CUSTOMER CARE AGENT Jadon Louise MD LAB URINE ORDERABLES Final Result Performing Organization Address City/[facility]/ZIP Co de Phone Number [facility] ([place]) 1 [facility] Department [place] [address] [place] ref Lab * (ABNORMAL) CBC with auto differential (09/29/2024 7:10 AM CUSTOMER CARE AGENT) WBC 9.2 3.8 - 9.9 K/cumm Hgb 11.1(L) 11.9 - 15.5 g/dL [facility] ([place]) Hct 33.3(L) 35.6 - 45.5 % [facility] ([place]) Plt 187 150 - 400 K/cumm [facility] ([place]) MPV 9.7 9.1 - 12.3 fL [facility] ([place]) RBC 4.03 3.90 - 5.20 M/cumm [facility] ([place]) MCV 82.6 81.3 - 96.4 fL [facility] ([place]) MCH 27.5 27.1 - 33.3 pg [facility] ([place]) MCHC 33.3 32.3 - 35.7 g/dL [facility] ([place]) RDW CV 14.0 11.1 - 14.9 % [facility] ([place]) RDW SD 41.8 35.7 - 48.1 fL [facility] ([place]) NRBC abs 0.00 0.00 - 0.01 K/cumm [facility] ([place]) Blood 09/29/2024 7:10 AM CUSTOMER CARE AGENT 09/29/2024 7:23 AM CUSTOMER CARE AGENT us Jadon Louise MD LAB BLOOD ORDERABLES Final Result [facility] ([place]) [address] [facility] [place] [place] [address] * ABO/Rh (09/29/2024 7:10 AM CUSTOMER CARE AGENT) ABO/Rh A Negative Blood 09/29/2024 7:10 AM CUSTOMER CARE AGENT 09/29/2024 7:23 AM CUSTOMER CARE AGENT Narrative [facility] ([place]) - 09/29/2024 8:18 AM CUSTOMER CARE AGENT Has the patient had Daratumumab or Isatuximab in the past 6 months?->Unknown Jadon Louise MD LAB BLOOD BANK TEST ORDERA BLES Final Result Performing Organization Address [facility] Co de Phone Number [facility] ([place]) 1 [facility] [address] [place] [address] * RPR Blood (09/29/2024 7:10 AM CUSTOMER CARE AGENT) RPR Nonreactive Nonreactive Comment:Testing performed by : [facility], [address] [place] [address]., [id number] Blood 09/29/2024 7:10 AM CUSTOMER CARE AGENT 09/29/2024 11:10 AM CUSTOMER CARE AGENT Jadon Louise MD LAB MICROBIOLOGY - GENERAL ORDERABLES Final Result Performing Organization Address [facility] Co de Phone Number L[facility] ([place]) [address] [facility] [employer] [place] [address] * Antibody screen (09/29/2024 7:10 AM CUSTOMER CARE AGENT) Melissa, indirect, Gel Interpretation Negative ABSC Blood 09/29/2024 7:10 AM CUSTOMER CARE AGENT 09/29/2024 7:23 AM CUSTOMER CARE AGENT Narrative LES BLAIRE ([place]) - 09/29/2024 8:18 AM CUSTOMER CARE AGENT Has the patient had Daratumumab or Isatuximab in the past 6 months?->Unknown Jadon Louise MD LAB BLOOD BANK TEST ORDERA BLES Final Result [facility] ([place]) 1 [facility] Department [place] [address] * POCT urinalysis dipstick (09/19/2024 2:05 PM CUSTOMER CARE AGENT) Glucose, ur, POC Negative Negative MG/DL Ketones, ur, POC Negative Negative Protein, ur, POC Negative Negative Lot Number [id number] Urine 09/19/2024 2:05 PM CUSTOMER CARE AGENT Jadon Louise MD POINT OF CARE TEST ORDERAB LES Final Result * POCT urinalysis dipstick (09/12/2024 2:16 PM CUSTOMER CARE AGENT) Glucose, ur, POC Negative Negative MG/DL Ketones, ur, POC Negative Negative Protein, ur, POC Negative Negative Lot Number [id number] Urine 09/12/2024 2:16 PM CUSTOMER CARE AGENT Jadon Louise MD POINT OF CARE TEST ORDERAB LES Final Result * Group B streptococcal culture Vaginal/Rectal (09/05/2024 9:04 PM CUSTOMER CARE AGENT) Report Final Report: Negative Comment:Testing performed by : [facility], 1 [facility] [address] Vaginal/Rectal 09/05/2024 9: 04 PM CUSTOMER CARE AGENT 09/05/2024 10:53 PM CUSTOMER CARE AGENT Narrative LES - 09/09/2024 9:45 AM CUSTOMER CARE AGENT Testing performed by [facility] ([phone]). Jaja Ly NP LAB MICROBIOLOGY - GENERAL ORDER MUNDO Final Result LES [address] [address] Department [place] [address] * (ABNORMAL) POCT OB urine short dip (glucose, protein, ketones) (09/05/2024 2:02 PM CUSTOMER CARE AGENT) Glucose, ur, POC Negative Negative MG/DL Protein, ur, POC Trace(A) Negative Ketones, ur, POC Negative Negative Lot Number [id number] Urine 09/05/2024 2:02 PM CUSTOMER CARE AGENT Result [facility] Jaja Ly NP POINT OF CARE TEST ORDERABLES Fi nal Result * POCT urinalysis dipstick (08/21/2024 1:46 PM CUSTOMER CARE AGENT) Glucose, ur, POC Negative Negative MG/DL Ketones, ur, POC Negative Negative Protein, ur, POC Negative Negative Lot Number [id number] Urine 08/21/2024 1:46 PM CUSTOMER CARE AGENT Result [facility] Jadon Louise MD POINT OF CARE TEST ORDERAB LES Final Result * Hepatitis C antibody Blood (03/10/2024 2:15 PM CDT) Hep C Ab Nonreactive Nonreactive Comment: Interpretive Data Nonreactive: Antibodies to HCV not detected. Does NOT exclude the possibility of recent exposure to HCV. Equivocal: Equivocal for HCV antibodies. Supplemental molecular testing will be automatically performed to determine infection status in accordance with current CDC screening recommendations. ?? Reactive: Positive for HCV antibodies. ??This may represent current or past HCV infection. Supplemental molecular testing will be automatically performed to determine ??current infection status in accordance with current CDC screening recommendations. Interpretive data was last revised on 2019. Testing performed by: [facility], [address] [place] [address], [place] [address] Blood 03/10/2024 2:15 PM CDT 03/10/2024 6:50 PM CDT Result [facility] Jadon Louise MD LAB MICROBIOLOGY - GENERAL ORDERABLES Final Result [facility] [place]) 1 [facility] Department [place] [address] * High Risk HPV DNA Detection with Genotyping (Molecular component) (03/10/2024 1:57 PM CDT) HPV HR 16 Not Detected Not Detected [facility] Comment:Testing performed by : [facility], [address] [place]., [address] HPV HR 18 Not Detected Not Detected LES Comment:Testing performed by : [facility], [address] [place]., [address] HPV HR Non 16/18 Not Detected Not Detected LES Comment: Interpretive Data Nucleic acid amplification for detection of high-risk Human Papilloma virus (HPV) is performed by the Roxanne Verenice 6800 HPV test. ??This assay specifically detects HPV-16 and HPV-18 genotypes. ??The following HPV genotypes are detected as high-risk HPV: ?? HPV-31, 33, 35, ,39, 45, 51, 52, 56, 58, 59, 66, and 68. ??This assay has been approved by the [place] Food and Drug Administration for detection of HPV in cervical specimens collected by a physician using an endocervical brush/spatula or cervical broom and placed in the ThinPrep Pap Test PreservCyt collection containers. ??The performance characteristics of this test have been verified by the [facility] Molecular Infectious Disease laboratory. Correlate with separately reported cytology results, as applicable. Interpretive data last revised 23 Testing performed by: [facility], [address] [place] [address]., [id number] Endocervical 03/10/2024 1:57 PM CDT 03/13/2024 3:23 PM CDT Narrative LES - 03/13/2024 7:55 PM CDT Clinical history and diagnosis->a Number of vials->1 Testing type->Screening Last menstrual period (date if known)->a Jadon Louise MD LAB BODY FLUIDS AND STOOLS ORDERABLES Final Result LES [address] [address] [place] [address] [facility] from Last 3 Months or Most Recently Relevant to Health Maintenance Insurance [employer] [facility] Advance Directives For more information, please contact: [phone] * Full Code (Latest Code Status on File) Date Activated Date Inactivated Comments 09/29/2024 2:27 PM 09/30/2024 7:55 PM * Full Code Date Activated Date Inactivated Comments 09/29/2024 6:39 AM 09/29/2024 2:27 PM Full CPR i n case of cardiopulmonary arrest * Full Code Date Activated Date Inactivated Comments 08/13/2020 6:24 AM 08/16/2020 12:09 AM Full CPR in case of cardiopulmonary arrest Care Teams [employer] Fire Control Man Relationship Specialty Start Date End Date No, Physician PCP - General 04/15/17 Jadon Louise MD [address] [place] [address] DR GRUBER [address] [place] [address] Counter Checker Obstetrics and Gynecology 08/14/20
--- OUTSIDE RECORDS SUMMARY | 2024-11-04 08:38 | XMS_ITS | Referral Summary ---
Author Organization [facility] Address [address] [place] [address] Care Team Providers Care Revenue Field Auditor Name Role Phone No, Physician Primary Care Provider [phone] Jadon Louise MD Unavailable [phone] Encounters Date Type Department Care Team Description 09/29/2024 6:[address] IN WAITER/WAITRESS - 09/30/2024 2:[address] IN WAITER/WAITRESS Hospital Encounter [facility] [address] [place] [address] Jadon Louise MD Vaginal delivery [O80] (Primary Dx); 39 weeks gestation of Discharge Disposition: Discharge to home or self care 09/29/2024 Documentation [facility] Warm Hand Off Program [address] [place], [place] [phone] Ethel Sotelo 09/29/2024 10:[address] WAITER/WAITRESS Anesthesia Event [facility] [address] [place] [address] Kalli Bruce Jr., MD Reinersman, Chelsea Couch, ALYSSA 09/19/2024 1:[address] IN WAITER/WAITRESS Office Visit [facility]by KINJAL [facility] [address] [place] [address] [address], [place] [address] Jadon Louise MD Encounter for supervision of other normal in third trimester (Primary Dx); 37 weeks gestation of 09/12/2024 1:[address] IN WAITER/WAITRESS Office Visit Quimbyfelipe [facility] [address] [place] [address] [address], [place] [phone] Jadon Louise MD Encounter for supervision of other normal in third trimester (Primary Dx); 37 weeks gestation of 09/05/2024 2:[address] IN WAITER/WAITRESS - 09/05/2024 11:[address] IN WAITER/WAITRESS Hospital Encounter [address] [address] Encounter for supervision of other normal in third trimester; 36 weeks gestation of Discharge Disposition: Discharge to home or self care 09/05/2024 1:[address] IN WAITER/WAITRESS Office Visit Quimbyfelipe [facility] [employer] [address] [place] [address] [address] [place] [address] Jaja Ly NP Encounter for supervision of other normal in third trimester (Primary Dx); 36 weeks gestation of 08/21/2024 1:[address] IN WAITER/WAITRESS Office Visit Damaris EverlaterFelipe [facility] [address] [place] [address] [address] [place] [address] Jadon Louise MD Encounter for supervision of other normal in third trimester (Primary Dx); 33 weeks gestation of from Last 3 Months Allergies Active Allergy Reactions Criticality Noted Date [...] food. 30 capsule 7 4 Active PNV #[id number] acid-dha 35 mg iron-5 mg iron-1 mg [...] (01/03/2019): Added automatically from request for surgery [id number] Vaginal delivery Resolved Problems Problem Noted Date [...] delivery 09/24/2020 39 weeks gestation of 09/24/2020 Immunizations Name Administration Dates Next Due MMR 08/15/2020(Deferred: No longer n eeded) Tdap 08/21/2024,06/10/2020 Social History Tobacco Use Types Packs/Day Years Used Date Smoking Tobacco: Never Passive Smoke Exposure: Never Smokeless Tobacco: Never Tobacco Cessation:Counseling Given: No Alcohol Use Standard Drinks/Week Comments Not Currently 0 (1 standard drink = 0.6 oz pur e alcohol) [facility] Utilities Answer Date Recorded In the past 12 months has e electric, gas, oil, or water company [...] week 09/29/2024 How often do you attend [facility] or sab[facility] services? Never 09/29/2024 Do you belong to any clubs o r organizations such as jain groups, unions, fraternal or athletic groups, or [...] Date Recorded PHQ-2 Total Score 0 09/29/2024 [facility] - Occupational Stress Questionnaire Answer Date Recorded [...] things needed for daily living? No 09/29/2024 Oakley Depression Scale Answer Date Recorded Oakley Depression Scale Total 2 09/29/2024 The thought [...] any time in the past 12 m [facility], were you homeless or living in a senior care (including now)? No 09/29/2024 Personal Safety Answer Date Recorded Have you ever been in or are you currently in a harmful physical or emotional relationship or is someone making you feel afraid or unsafe? Denies 09/29/2024 Comments No Sex and Gender Information Value Date Recorded Sex Assigned at Not on file Legal Sex Female 4:[address] IN WAITER/WAITRESS Gender Identity Not on file Sexual Orientation Not on file Last Filed Vital Signs Vital Sign Reading Time Taken Comments Blood Pressure 111/75 09/30/2024 7:[address] IN WAITER/WAITRESS Pulse 61 09/30/2024 7:[address] IN WAITER/WAITRESS Temperature 37.1 ??C (98.7 ??F) 09/30/2024 7:15 AM CS T Respiratory Rate 14 09/30/2024 7:[address] IN WAITER/WAITRESS Oxygen Saturation 99% 09/29/2024 1:[address] IN WAITER/WAITRESS Inhaled Oxygen Concentration - - Weight 78 kg (172 lb) 09/29/2024 6:[address] IN WAITER/WAITRESS Height 149.9 cm (4' 11 ) 09/29/2024 6:[address] IN WAITER/WAITRESS Body Mass Index 34.74 09/29/2024 6:[address] IN WAITER/WAITRESS Plan of Treatment Not on file Medical Devices Implanted Type Area Tank Builder Device Identifier Shelf Expiration Date Model / Serial / Lot [employer]. 70-0297 [id number] Hole Lock Midshaft Narrow Profile Clavicle Right Plate - [id number] Implanted:Qty: 1 on 01/03/2019 by Maxi Sweet MD at [facility] [employer] 70-0297 / / N/A 30-030 -3.0 Non Locking Hexalobe Screw Implanted:Qty: 1 on 01/03/2019 by Maxi Sweet MD at [facility] Inc [id number] 30-0302 / / N/A [employer] 30-0303 3mm 12mm Nonlock Hexalobe Head Screw Bone Nonsterile - [id number] Implanted:Qty: 1 on 01/03/2019 by Maxi Sweet MD at [facility] [employer] 30-0303 / / N/A [employer] 30-0279 3mm 10mm Lock Hexalobe Elbow Screw Bone Nonsterile - [id number] Implanted:Qty: 1 on 01/03/2019 by Maxi Sweet MD at [facility] [employer] 30-0279 / / N/A [employer] 30-0280 3mm 12mm Lock Hexalobe Head Screw Bone Nonsterile - [id number] Implanted:Qty: 3 on 01/03/2019 by Maxi Sweet MD at [facility] [employer] 30-0280 / / N/A Procedures Procedure Name Priority Date/Time Associated Diagnosis Comments DIFFERENTIAL AUTO STAT 09/30/2024 10: [address] WAITER/WAITRESS CBC WITH AUTO DIFFERENTIAL STAT 09/30/2024 10:[address] IN WAITER/WAITRESS ERYTHROCYTE SCREEN Timed 09/30/2024 7:[address] IN WAITER/WAITRESS RH IMMUNE GLOBULIN EVAL Timed 09/30/2024 7:[address] IN WAITER/WAITRESS BLOOD GAS, CORD ARTERIAL STAT 09/29/2024 12:[address] IN WAITER/WAITRESS BLOOD GAS, CORD VENOUS STAT 12:[address] WAITER/WAITRESS ANESTHESIA EPIDURAL BLOCK Routine 09/29/2024 11:[address] IN WAITER/WAITRESS CANNABINOIDS, URINE, CONFIRMATION STAT 09/29/2024 7:[address] IN WAITER/WAITRESS DIFFERENTIAL AUTO STAT 09/29/2024 7:[address] IN WAITER/WAITRESS ANTIBODY SCREEN STAT 09/29/2024 7:[address] IN WAITER/WAITRESS ABO/RH STAT 09/29/2024 7:[address] IN WAITER/WAITRESS DRUG SCREEN, URINE L AND D WITH REFLEX CONFIRMATION STAT 09/29/2024 7:[address] IN WAITER/WAITRESS CBC WITH AUTO DIFFERENTIAL STAT 09/29/2024 7:[address] IN WAITER/WAITRESS TYPE AND SCREEN STAT 09/29/2024 7:[address] IN WAITER/WAITRESS RPR Routine 09/29/2024 7:[address] IN WAITER/WAITRESS POCT URINALYSIS DIPSTICK Routine 09/19/2024 2:[address] IN WAITER/WAITRESS Encounter for supervision of other normal in third trimester 37 weeks gestation of POCT URINALYSIS DIPSTICK Routine 09/12/2024 2:[address] IN WAITER/WAITRESS Encounter for supervision of other normal in third trimester 37 weeks gestation of GROUP B STREPTOCOCCUS CULTURE Routine 09/05/2024 9:[address] IN WAITER/WAITRESS Encounter for supervision of other normal in third trimester 36 weeks gestation of POCT OB URINE SHORT DIP (GLUCOSE, PROTEIN, KETONES) Routine 09/05/2024 2:[address] IN WAITER/WAITRESS Encounter for supervision of other normal in third trimester 36 weeks gestation of POCT URINALYSIS DIPSTICK Routine 08/21/2024 1:[address] IN WAITER/WAITRESS Encounter for supervision of other normal in [...] * (ABNORMAL) Differential, auto (09/30/2024 10:[address] IN WAITER/WAITRESS) Neutrophil abs 11.0(H) 1.5 - 6.5 K/cumm [...] on 2018. Blood 09/30/2024 10:[address] IN WAITER/WAITRESS 09/30/2024 10:[address] IN WAITER/WAITRESS Jadon Louise MD LAB BLOOD ORDERABLES Final Result [facility] ([place]) 1 [facility] [place] [address] * (ABNORMAL) CBC with auto differential (09/30/2024 10:[address] WAITER/WAITRESS) WBC 13.6(H) 3.8 - 9.9 K/cumm Hgb 10.3(L) 11.9 - 15.5 g/dL [facility] ([place]) Hct 31.6(L) 35.6 - 45.5 % [facility] ([place]) Plt 181 150 - 400 [...] [facility] ([place]) Blood 09/30/2024 10:[address] WAITER/WAITRESS 09/30/2024 10:[address] IN WAITER/WAITRESS Jadon Louise MD LAB BLOOD ORDERABLES Final Result Performing Organization Address City/[facility]/ZIP Co de Phone Number [facility] ([place]) 1 [facility] [place] [address] * Rh Immune Globulin Eval (09/30/2024 7:[address] IN WAITER/WAITRESS) RhIg Eligible Yes RhIg Administration 1 vial of Rh Immune Globulin (300 mcg dose) [facility] ([place]) Blood 09/30/2024 7:[address] IN WAITER/WAITRESS 09/30/2024 7:[address] IN WAITER/WAITRESS [facility]ative [facility] - 09/30/2024 8:[address] IN WAITER/WAITRESS Number of weeks ?->20 weeks or greater antibody screen result:->Negative Rhogam given?->Not given Number of vials requested:->1 Jadon Louise MD LAB BLOOD BANK TEST ORDERA BLES Final Result Performing Organization Address City/[facility]/ZIP Co de Phone Number [facility] ([place]) 1 [facility] [place] [address] * erythrocyte screen (09/30/2024 7:[address] IN WAITER/WAITRESS) Screen Interpretation Negative Comment:Testing performed by : [facility], 1 [place] [address] Blood 09/30/2024 7:[address] IN WAITER/WAITRESS 09/30/2024 9:[address] IN WAITER/WAITRESS Mckenna Silver MD LAB BLOOD ORDERABLES Chacha l Result Performing Organization Address [facility] Co de Phone Number [facility] ([place]) 1 [facility] [place] [address] * Blood Gas, Cord Venous (09/29/2024 12:[address] WAITER/WAITRESS) pH Cord Panfilo 7.35 pCO2 Cord Panfilo [...] 2018 Cord blood 09/29/2024 12:[address] WAITER/WAITRESS 09/29/2024 12:[address] WAITER/WAITRESS us Jadon Louise MD LAB BLOOD ORDERABLES Final Result Performing Organization Address [facility]/ZIP Co de Phone Number [facility] ([place]) 1 [facility] [place] [address] * Blood Gas, Cord Arterial (09/29/2024 12:[address] WAITER/WAITRESS) pH Cord Art 7.27 pCO2 Cord Art 48 mmHg [facility] ([place]) pO2 Cord Art 40 mmHg [facility] ([place]) Base Excess Cord Art -6 mmol/L [facility] ([place]) HCO3 Cord Art (Calc) 21 mmol/L [facility] ([place]) O2 Sat Cord Art (Vivienne) 76 % [facility] ([place]) Comment: Interpretive Data No Reference Ranges Established Current Interpretive Data was last revised on 2018 Cord blood 09/29/2024 12:[address] WAITER/WAITRESS 09/29/2024 12:[address] IN WAITER/WAITRESS us Jadon Louise MD LAB BLOOD ORDERABLES Final Result Performing Organization Address City/State/[facility] Co de Phone Number [facility] ([place]) 1 [facility] Department [place] [address] * Epidural Block (09/29/2024 11:[address] WAITER/WAITRESS) Narrative Kalli Bruce Jr., MD - 09/29/2024 11:[address] IN WAITER/WAITRESS Kalli Bruce Jr., MD ? 09/29/2024 11:25 [...] patient tolerated procedure well with no complications us Kalli Bruce Jr., MD ANESTHESIA ORDER MUNDO Final Result * (ABNORMAL) Drug Screen, Urine L and D with Reflex Confirmation (09/29/2024 7:[address] IN WAITER/WAITRESS) [facility] Amphetamine, ur Not Detected CutOff 500ng/mL Comment: [...] 2023. Methadone, ur Not Detected CutOff 300ng/mL [facility] ([place]) Comment: Interpretive Data - Methadone: ??Samples containing greater than 300 ng/mL d,l-methadone or other cross-reacting compounds are reported as positive. ??False positive and false negative results are possible. Confirmatory testing required for definitive results. Current Interpretive Data was last reviewed 2023. Opiates, ur Not Detected CutOff 300ng/mL [facility] ([place]) Comment: Interpretive Data - Opiates: ??Samples containing greater than 300 ng/mL morphine or other cross-reacting compounds are reported as positive. ??False positive and false negative results are possible. Confirmatory testing required for definitive results. Current Interpretive Data was last reviewed 2023. Oxycodone, ur Not Detected CutOff 100ng/mL [facility] ([place]) Comment: Interpretive Data - Oxycodone: ??Samples containing greater than 100 ng/mL oxycodone or other cross-reacting compounds are reported as ??positive. ??False positive and false negative results are possible. Confirmatory testing required for definitive results. Current Interpretive Data was last reviewed 2023. Phencyclidine, ur Not Detected CutOff 25 ng/mL [facility] ([place]) Comment: Interpretive Data - Phencyclidine: ??Samples containing greater than 25 ng/mL phencyclidine or other cross-reacting compounds are reported as positive. ??False positive and false negative results are possible. Confirmatory testing required for definitive results. Current Interpretive Data was last reviewed 2023. Urine Creatinine 101 mg/dL [facility] ([place]) Comment: Interpretive Data Urine Creatinine: < 10 mg/dL is extremely dilute = or > 10 but < 20 mg/dL is dilute = or > 20 mg/dL is normal Current Interpretive Data was last revised on 2017. Urine (Urine, Clean Catch) 09/29/2024 7:[address] WAITER/WAITRESS 09/29/2024 7:[address] IN WAITER/WAITRESS Narrative [facility] ([place]) - 09/29/2024 7:[address] IN WAITER/WAITRESS Drug of Abuse screening is performed by immunoassay for medical purposes only. ??This is not to be used for Pain Management purposes. ??If Detected, confirmation testing will be performed for Amphetamines, Barbiturates, Benzodiazepines, Cannabinoids, Cocaine, Fentanyl, Methadone, Opiates, Oxycodone or Phencyclidine. Jadon Louise MD LAB URINE ORDERABLES Final Result [facility] ([place]) 1 [facility] Department [place] [address] * (ABNORMAL) Differential, auto (09/29/2024 7:[address] IN WAITER/WAITRESS) Neutrophil abs 7.1(H) 1.5 - 6.5 K/cumm Imm gran abs 0.1 0.0 - 0.1 K/cumm [facility] ([place]) Lymphocyte abs 1.3 0.8 - 3.3 K/cumm [facility] ([place]) Monocyte abs 0.6 0.2 - 0.8 K/cumm [facility] ([place]) Eosinophil abs 0.1 0.0 - 0.5 K/cumm [facility] ([place]) Basophil abs 0.0 0.0 - 0.1 K/cumm [facility] ([place]) Neutrophil pct 76.8 % [facility] ([place]) Comment: Interpretive Data Percent cell count reference ranges are not reported, since discordance with absolute values may lead to misinterpretation of CBC data. Current Interpretive Data was last revised on 2018. Imm gran pct 1.4 % [facility] ([place]) Comment: Interpretive Data Percent cell count reference ranges are not reported, since discordance with absolute values may lead to misinterpretation of CBC data. Current Interpretive Data was last revised on 2018. Lymphocyte pct 13.9 % [facility] ([place]) Comment: Interpretive Data Percent cell count reference ranges are not reported, since discordance with absolute values may lead to misinterpretation of CBC data. Current Interpretive Data was last revised on 2018. Monocyte pct 6.3 % [facility] ([place]) Comment: Interpretive Data Percent cell count reference ranges are not reported, since discordance with absolute values may lead to misinterpretation of CBC data. Current Interpretive Data was last revised on 2018. Eosinophil pct 1.2 % [facility]AR[facility] ([place]) Comment: Interpretive Data Percent cell [...] revised on 2018. Blood 09/29/2024 7:[address] IN WAITER/WAITRESS 09/29/2024 7:[address] IN WAITER/WAITRESS Jadon Louise MD LAB BLOOD ORDERABLES Final Result [facility] ([place]) 1 [facility] Department [place] [address] * Cannabinoids, urine, confirmation (09/29/2024 7:[address] IN WAITER/WAITRESS) Delta-8 Carboxy-THC Not Detected Cutoff: 5 ng/mL [facility] ref Lab Delta-9 Carboxy-THC 238 Cutoff: 5 ng/mL [facility] ([place]) Cannabinoids ur interpretation Positive. [facility] ([place]) Comment: ADDITIONAL INFORMATION This report is intended for use in clinical monitoring and management of patients. ??It is not intended for use in employment-related testing. This test was developed and its performance characteristics determined by [facility] in a manner consistent with CLIA requirements. This test has not been cleared or approved by the U.S. Food and Drug Administration. Test Performed by: [facility] - [address] [address] Cashier Or Checker Stock Clerk: Shirley Elizalde Ph.D.; CLIA# [id number] Urine 09/29/2024 7:[address] WAITER/WAITRESS 09/29/2024 7:[address] IN WAITER/WAITRESS Jadon Louise MD LAB URINE ORDERABLES Final Result [facility] ([place]) 1 [facility] Department [place] [address] Banerjee ref Lab * (ABNORMAL) CBC with auto differential (09/29/2024 7:[address] IN WAITER/WAITRESS) WBC 9.2 3.8 - 9.9 K/cumm Hgb [...] [facility] ([place]) Blood 09/29/2024 7:[address] IN WAITER/WAITRESS 09/29/2024 7:[address] IN WAITER/WAITRESS Jadon Louise MD LAB BLOOD ORDERABLES Final Result [facility] ([place]) 1 [facility] [place] [address] * ABO/Rh (09/29/2024 7:[address] IN WAITER/WAITRESS) ABO/Rh A Negative Blood 09/29/2024 7:[address] IN WAITER/WAITRESS 09/29/2024 7:[address] IN WAITER/WAITRESS Narrative [facility] ([place]) - 09/29/2024 8:[address] IN WAITER/WAITRESS Has the patient had Daratumumab or Isatuximab in the past 6 months?->Unknown Jadon Louise MD LAB BLOOD BANK TEST ORDERA BLES Final Result [facility] ([place]) 1 [facility] [place] [address] * RPR Blood (09/29/2024 7:[address] IN WAITER/WAITRESS) RPR Nonreactive Nonreactive Comment:Testing performed by : [facility], [address] [place] [address]., [address] Blood 09/29/2024 7:[address] IN WAITER/WAITRESS 09/29/2024 11:[address] IN WAITER/WAITRESS Jadon Louise MD LAB MICROBIOLOGY - GENERAL ORDERABLES Final Result Performing Organization Address [facility] Co de Phone Number [facility] ([place]) 1 [facility] [place] [address] * Antibody screen (09/29/2024 7:[address] IN WAITER/WAITRESS) Melissa, indirect, Gel Interpretation Negative ABSC Blood 09/29/2024 7:[address] IN WAITER/WAITRESS 09/29/2024 7:[address] IN WAITER/WAITRESS Narrative [facility] ([place]) - 09/29/2024 8:[address] IN WAITER/WAITRESS Has the patient had Daratumumab or Isatuximab in the past 6 months?->Unknown Jadon Louise MD LAB BLOOD BANK TEST ORDERA BLES Final Result [facility] ([place]) 1 [facility] [place] [address] * POCT urinalysis dipstick (09/19/2024 2:[address] IN WAITER/WAITRESS) Glucose, ur, POC Negative Negative MG/DL Ketones, ur, POC Negative Negative Protein, ur, POC Negative Negative Lot Number [id number] Urine 09/19/2024 2:[address] IN WAITER/WAITRESS Jadon Louise MD POINT OF CARE TEST ORDERAB LES Final Result * POCT urinalysis dipstick (09/12/2024 2:[address] IN WAITER/WAITRESS) Pathologist [facility] Glucose, ur, POC Negative Negative MG/DL Ketones, ur, POC Negative Negative Protein, ur, POC Negative Negative Lot Number [id number] Urine 09/12/2024 2:[address] IN WAITER/WAITRESS Jadon Louise MD POINT OF CARE TEST ORDERAB LES Final Result * Group B streptococcal culture Vaginal/Rectal (09/05/2024 9:[address] IN WAITER/WAITRESS) Pathologist [facility] Report Final Report: Negative Comment:Testing performed by : [facility], [address] [place]., [address] Vaginal/Rectal 09/05/2024 9: [address] IN WAITER/WAITRESS 09/05/2024 10:[address] IN WAITER/WAITRESS Narrative [facility] - 09/09/2024 9:[address] IN WAITER/WAITRESS Testing performed by [facility] ([phone]). Jaja Ly NP LAB MICROBIOLOGY - GENERAL ORDER MUNDO Final Result [facility] AM[facility] [address] [address] Department of Laboratories [place], [place] [id number] * (ABNORMAL) POCT OB urine short dip (glucose, protein, ketones) (09/05/2024 2:[address] IN WAITER/WAITRESS) Pathologist [facility] Glucose, ur, POC Negative Negative MG/DL Protein, ur, POC Trace(A) Negative Ketones, ur, POC Negative Negative Lot Number [id number] Urine 09/05/2024 2:[address] IN WAITER/WAITRESS Result [facility] Jaja Ly NP POINT OF CARE TEST ORDERABLES Fi nal Result * POCT urinalysis dipstick (08/21/2024 1:[address] WAITER/WAITRESS) [facility] Glucose, ur, POC Negative Negative MG/DL Ketones, ur, POC Negative Negative Protein, ur, POC Negative Negative Lot Number [id number] Urine 08/21/2024 1:[address] IN WAITER/WAITRESS Jadon Louise MD POINT OF CARE TEST ORDERAB LES Final Result * Hepatitis C antibody Blood (03/10/2024 2:15 PM CDT) [facility] Hep C Ab Nonreactive Nonreactive Comment: Interpretive [...] last revised on 2019. Testing performed by: [facility], [address] [place] [address]., [address] Blood 03/10/2024 2:15 PM CDT 03/10/2024 6:50 PM CDT Result [facility] Jadon Louise MD LAB MICROBIOLOGY - GENERAL ORDERABLES Final Result LES [facility] ([place]) 1 [facility] [place] [address] * High Risk HPV DNA Detection with Genotyping (Molecular component) (03/10/2024 1:57 PM CDT) [facility] HPV HR 16 Not Detected Not Detected [facility] Comment:Testing performed by : [facility], [address] [place] [address]., [id number] HPV HR 18 Not Detected Not Detected [facility] Comment:Testing performed by : [facility], [address] [place]., [address] HPV HR Non 16/18 Not Detected Not Detected [facility] Comment: Interpretive Data Nucleic acid amplification for [...] this test have been verified by the [facility] Molecular Infectious Disease laboratory. Correlate with separately reported cytology results, as applicable. Interpretive data last revised 23 Testing performed by: [facility], [address] [place]., [address] Endocervical 03/10/2024 1:57 PM CDT 03/13/2024 3:23 PM CDT Narrative LES - 03/13/2024 7:55 PM CDT Clinical history and diagnosis->a Number of vials->1 Testing type->Screening Last menstrual period (date if known)->a Jadon Louise MD LAB BODY FLUIDS AND STOOLS ORDERABLES Final Result L[facility] [address] [address] [place] [address] [facility] from Last 3 Months or Most Recently Relevant to Health Maintenance Insurance [facility] [facility] [employer] [facility] AETNA BETTER [facility] [place] Advance Directives For more information, please contact: [phone] * Full Code (Latest Code Status on [...] in case of cardiopulmonary arrest Care Teams Revenue Field Auditor Relationship Specialty Start Date End Date No, Physician PCP - General 04/15/17 Jadon Louise MD [address] [facility] [address] [place] [id number] Ski Technician Obstetrics and Gynecology 08/14/20
[2024-11-04 08:40] VITALS: BP 113/56; PULSE 54; RESP 20; TEMP 36.6; O2SAT 100
--- NOTE | 2024-11-04 09:00 | ED_ITS ---
HPI - General Adult General Chief complaint: Dental/Oral Stated complaint: tooth swelling/pain Source: patient Mode of arrival: ambulatory Limitations: no limitations History of Present Illness HPI narrative: Patient presents for evaluation of left upper dental pain. Symptom onset about 1 year ago. Symptoms worse in the last few days. Pain is constant, throbbing, 7/10 severity. She has a dental fracture in the affected area. No fever, chills, nausea, vomiting or diarrhea. She does use an electronic cigarette. Related Data Allergies Allergy/AdvReac Type Severity Reaction Status Date / Time doxycycline Allergy Rash Verified 01/02/24 10:00 Review of Systems Review of Systems: CONSTITUTIONAL: Denies fever, chills, or sweats. EYES: Denies visual changes, redness, or discharge. ENT: Reports left upper dental pain. Denies rhinorrhea, congestion, sore throat, or otalgia. CARDIOVASCULAR: Denies chest pain, palpitations, or edema. RESPIRATORY: Denies cough or dyspnea. GASTROINTESTINAL: Denies abdominal pain, nausea, vomiting, or diarrhea. GENITOURINARY: Denies dysuria or hematuria. SKIN: Denies rash or itching. MUSCULOSKELETAL: Denies back pain, joint pain, or myalgia. NEUROLOGIC: Denies headache, numbness, dizziness, or weakness. PSYCHIATRIC: Denies anxiety or depression. [facility] Past Medical History Medical History No pertinent past medical history Surgical History Surgical History (Updated 11/04/24 @ 09:01 by Jorge Ferrer, [employer]OL [employer] SETUP OPERATOR, ) No pertinent past surgical history Family History Family History Mother Family history non-contributory Social History Social History Smoking status: Current every day smoker Tobacco type: e-cigarettes/vaping Substance use: never Living arrangements: with family Gender identity (if verbalized by the patient): Female Sexual Orientation (if Verbalized by the Patient): Straight or Heterosexual Spiritual care concerns: No Exam Narrative: GENERAL: Well-appearing, well-nourished, and in no acute distress. HEAD: Normocephalic, atraumatic. EYES: PERRLA and EOMI. ENT: Nares clear, no rhinorrhea or epistaxis. Mucous membranes moist. Tooth #12 is fractured. There is no visible or palpable abscess. Oropharynx without tonsillar hypertrophy exudate or other lesions. Bilateral TMs pearly kyle nonbulging NECK: Supple. No adenopathy or masses. No carotid bruits or JVD CHEST: Clear to auscultation. No respiratory distress. No wheezes rales or rhonchi HEART: Regular rate and rhythm. No murmur heard. Normal peripheral pulses. ABDOMEN: Soft, nontender, nondistended, normal active bowel sounds. EXTREMITIES: Normal range of motion. No edema. SKIN: Warm, dry, no rash. NEURO: No focal deficits. Alert and oriented x3. PSYCH: Normal mood and affect. Course Course Emergency Course: This is a 24-year-old female who presented for evaluation of left upper dental pain. She has a dental fracture without visible abscess. Will tx with PCN. Increase hydration. [id number] agents for symptom management. Advised smoking cessation. Follow up with dentist. Go to the ER for worsening symptoms. Patient in agreement with plan of care. Level of Care: Express Care Visit Vital Signs Vital signs: Vital Signs Temperature 36.6 C 11/04/24 08:40 Pulse Rate 54 L 11/04/24 08:40 Respiratory Rate 11/04/24 08:40 Blood Pressure 113/56 L 11/04/24 08:40 Pulse Oximetry 100 11/04/24 08:40 Oxygen Delivery Room Air 11/04/24 08:40 Temperature 36.6 C 11/04/24 08:40 Pulse Rate 54 L 11/04/24 08:40 Respiratory Rate 11/04/24 08:40 Blood Pressure 113/56 L 11/04/24 08:40 Pulse Oximetry 100 11/04/24 08:40 Oxygen Delivery Room Air 11/04/24 08:40 Medical Decision Making Vital Signs Vital Signs: Vital Signs Temperature 36.6 C 11/04/24 08:40 Pulse Rate 54 L 11/04/24 08:40 Respiratory Rate 11/04/24 08:40 Blood Pressure 113/56 L 11/04/24 08:40 Pulse Oximetry 100 11/04/24 08:40 Oxygen Delivery Room Air 11/04/24 08:40 Temperature 36.6 C 11/04/24 08:40 Pulse Rate 54 L 11/04/24 08:40 Respiratory Rate 20 11/04/24 08:40 Blood Pressure 113/56 L 11/04/24 08:40 Pulse Oximetry 100 11/04/24 08:40 Oxygen Delivery Room Air 11/04/24 08:40 Discharge Plan Discharge Clinical Impression: Fracture of tooth Patient Disposition: Home, Self-Care Condition: Stable Instructions: Antibiotic Form, Toothache (ED) Patient Language: [place] Island[place] Prescriptions: New penicillin V potassium 500 mg tablet 500 mg PO Q6H 10 Days Qty: 40 0RF Follow-up/Referrals: Jarek Gonzalez MD [Physician] - Time of Disposition: 08:58
== END 2024-11-04 09:04 | disposition home or self-care (01) ==
PROVIDERS: Emergency Provider Nurse Practitioner
DX: S02.5XXA Fracture of tooth (traumatic), initial encounter for closed fracture (principal); F17.290 Nicotine dependence, other tobacco product, uncomplicated
CPT/HCPCS: 99213; G0463